=== PATIENT | male | born 1985 | race African-American/Black ===

== ENCOUNTER 2024-01-05 14:53 | Emergency (ER) | payer OTHER ==
[2024-01-05] MEDS ORDERED: LORazepam 2 MG/ML VIAL ONE (15:12)
[2024-01-05] MEDS ORDERED: TDAP (DIPHTH,PERTUSS(ACELL),TET VAC) 0.5 ML VIAL IMVAC ONE (15:12)
[2024-01-05] MEDS ORDERED: carBAMazepine 200 MG TAB ONE (15:12)
[2024-01-05 15:17] LABS: Absolute Basophils 0.1 K/uL (0-0.5); Absolute Lymphocytes (CBC) 0.9 K/uL (0.7-4.9); Absolute Monocytes 1.1 K/uL (0.1-1.3); Absolute Neutrophil 11.5 K/uL (1.8-8.0); Basophils % 0.5 % (0-1.3); Eosinophils % 0.1 % (0-4.4); Hematocrit 46.3 % (39.6-49.0); Hemoglobin 15.2 g/dL (13.6-17.9); Lymphocytes % 6.4 % (15.3-44.8); MCH 27.8 pg (27.0-35.0); MCHC 32.9 g/dL (32.0-36.0); MCV 84.6 fL (80-100); MPV 9.3 fL (7.6-11.3); Monocytes % 7.8 % (3.3-12.3); Neutrophils % 85.2 % (41.7-73.7); Platelets 213 thou/uL (152-406); RBC Red Blood Cell Count 5.47 M/uL (4.33-5.43); Red Cell Distribution Width 15.1 % (12.1-15.2)
[2024-01-05 15:34] LABS: Anion Gap 12.7 mEq/L (5.0-15.0); Bilirubin Total 0.4 mg/dL (0.2-1.0); Globulin 4.1 g/dL (2.3-3.5); Potassium 3.7 mEq/L (3.5-5.1); Protein, Total 8.1 g/dL (6.4-8.2)
[2024-01-05 15:46] LABS: Blood Morphology Comment NOT SEEN (NOT SEEN); Platelet Estimate ADEQ; White Blood Cell Scan OK (OK)
--- NOTE | 2024-01-05 15:59 | RAD REPORT ---
EXAM DESCRIPTION: CT - Head Brain Wo Cont - 01/05/2024 3:24 pm CLINICAL HISTORY: SEIZURE COMPARISON: No comparisons TECHNIQUE: Noncontrast head CT images were obtained without IV contrast. Multiplanar reformats were generated and reviewed. All CT scans are performed using dose optimization technique as appropriate and may include automated exposure control or mA/KV adjustment according to patient size. FINDINGS: No intracranial hemorrhage, mass, or edema. Midline structures are unremarkable. Normal ventricular caliber for age. Ryan-white matter differentiation is preserved, without evidence of acute infarct. No abnormal extra- axial fluid collections. Mastoid air cells and visualized portions of the paranasal sinuses are clear. No acute bony findings. IMPRESSION: No evidence of an acute intracranial process.
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
[2024-01-05 17:01] VITALS: BP 124/72; TEMP 98.4; O2SAT 97
== END 2024-01-05 16:32 | disposition home or self-care (01) ==
LOC: ER 14:53
DX: G40.89 Other seizures (principal); S00.83XA Contusion of other part of head, initial encounter
CPT/HCPCS: 36415; 70450; 80053; 85025; 96372; 96374; 99285

== ENCOUNTER 2024-04-25 17:43 | Emergency (ER) | payer OTHER ==
[2024-04-25] MEDS ORDERED: ONDANSETRON 4 MG/2 ML VIAL ONE (18:07)
--- NOTE | 2024-04-25 18:38 | RAD REPORT ---
EXAM DESCRIPTION: Sonal Single View04/25/2024 6:23 pm CLINICAL HISTORY: Chest pain COMPARISON: none FINDINGS: The lungs appear clear of acute infiltrate. The heart is normal size IMPRESSION: No acute abnormalities displayed
--- NOTE | 2024-04-25 19:19 | RAD REPORT ---
EXAM DESCRIPTION: CT - Head C Spine Mpr Wo Con - 04/25/2024 7:09 pm CLINICAL HISTORY: Head and neck injury status post fall. Head and neck pain COMPARISON: December [address] TECHNIQUE: Computed axial tomography of the head and cervical spine was obtained. Sagittal and coronal reconstruction was performed. All CT scans are performed using dose optimization technique as appropriate and may include automated exposure control or mA/KV adjustment according to patient size. FINDINGS: An intracranial bleed is not seen. The ventricles are normal in caliber. No significant hypodensity within the brain. An extra-axial fluid collection is not noted. Fluid within the visualized sinuses and mastoids is not seen A cervical fracture is not visualized. No dislocation is noted. Congenital nonunion posterior arch C1 IMPRESSION: No acute intracranial abnormality is seen. A cervical fracture is not visualized. If the patient continues to have symptoms to suggest intracranial /spinal cord pathology then MRI wou ld be recommended
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
[2024-04-25 20:48] LABS: Absolute Lymphocytes (CBC) 1.5 K/uL (0.7-4.9); Absolute Monocytes 0.9 K/uL (0.1-1.3); Absolute Neutrophil 8.1 K/uL (1.8-8.0); Basophils % 0.4 % (0-1.3); Eosinophils % 0.4 % (0-4.4); Hematocrit 43.5 % (39.6-49.0); Hemoglobin 14.2 g/dL (13.6-17.9); Lymphocytes % 14.3 % (15.3-44.8); MCH 27.1 pg (27.0-35.0); MCHC 32.7 g/dL (32.0-36.0); MCV 83.1 fL (80-100); MPV 9.6 fL (7.6-11.3); Monocytes % 8.5 % (3.3-12.3); Neutrophils % 76.4 % (41.7-73.7); Platelets 244 thou/uL (152-406); RBC Red Blood Cell Count 5.24 M/uL (4.33-5.43); Red Cell Distribution Width 14.6 % (12.1-15.2)
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
[2024-04-25 21:18] LABS: ALT/SGPT 24 U/L (16-61); AST/SGOT 37 U/L (15-37); Albumin 4.2 g/dL (3.4-5.0); Anion Gap 8.8 mEq/L (5.0-15.0); BUN Blood Urea Nitrogen 18 mg/dL (7-18); Bicarbonate 26 mEq/L (21-32); Bilirubin Total 0.4 mg/dL (0.2-1.0); Glomerular Filtration Rate 105 ml/min (=/>90); Glucose Level 88 mg/dL (74-106); Magnesium 2.5 mg/dL (1.6-2.4); Potassium 3.8 mEq/L (3.5-5.1); Sodium Level 136 mEq/L (136-145)
[2024-04-25 21:19] LABS: Bilirubin Direct < 0.2 mg/dL (0-0.2); Bilirubin Indirect, Calculated 0.2 mg/dL (0.2-0.8)
[2024-04-25 21:24] LABS: Albumin/Globulin Ratio 0.9 (1.1-1.8); Globulin 4.8 g/dL (2.3-3.5); Troponin High Sensitivity 42.5 pg/mL (<58.9)
[2024-04-25] MEDS ORDERED: levoFLOXacin 750 MG TAB ONE (21:28)
[2024-04-25] MEDS ORDERED: KETOROLAC 30 MG/ML INJ ONE (21:28)
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
[2024-04-25 21:35] LABS: Alkaline Phosphatase 55 U/L (45-117)
[2024-04-25 21:53] VITALS: TEMP 98
[2024-04-25 22:10] VITALS: O2SAT 98
[2024-04-25 22:12] VITALS: BP 121/78
--- NOTE | 2024-04-28 12:45 | EKG ---
Test Date: 2024-04-25 Test Time: 18:21:24 Robotic Technician: NATALY MEASUREMENT RESULTS: Intervals: Rate: 60 WI: 146 QRSD: 94 QT: 426 QTc: 426 [place]: P: 67 WI: 146 QRS: 11 T: 38 INTERPRETIVE STATEMENTS: Normal sinus rhythm Normal ECG No previous ECG available for comparison Electronically Signed On 04-28-24 12:41:01 CDT by Arnold Brothers
== END 2024-04-25 21:42 | disposition home or self-care (01) ==
LOC: ER 17:43
DX: S00.81XA Abrasion of other part of head, initial encounter (principal); S00.12XA Contusion of left eyelid and periocular area, initial encounter; J69.0 Pneumonitis due to inhalation of food and vomit; Z72.0 Tobacco use
CPT/HCPCS: 93005; 85025; 80048; 36415; 83735; 80076; 84484; 70450; 71250; 72125; 70486; 76377; 74176; 71045; 99285; J2405